=== PATIENT | female | born 1960 | race Caucasian/White ===

== ENCOUNTER 2022-08-03 06:02 | Day surgery (SDC) | payer OTHER ==
[2022-08-02 08:55] VITALS: BMI 25.5
[2022-08-03] MEDS ORDERED: LIDOCAINE HCL/PF 2% SDV 5ML VIAL ONE (07:07)
[2022-08-03] MEDS ORDERED: ePHEDrine SULFATE 50 MG/1 ML AMPULE ONE (07:07)
[2022-08-03] MEDS ORDERED: ONDANSETRON 4 MG/2 ML VIAL ONE (07:07)
[2022-08-03] MEDS ORDERED: DEXAMETHASONE SOD PHOSPHATE 4 MG/1 ML VIAL ONE (07:07)
[2022-08-03] MEDS ORDERED: MIDAZOLAM HCL 2 MG/2 ML SINGLE DOSE VIAL ONE ×2 (07:08→07:32)
[2022-08-03] MEDS ORDERED: ceFAZolin SODIUM 1 GM VIAL ONE ×2 (07:08→12:04)
[2022-08-03] MEDS ORDERED: PROPOFOL 40 ML ONE (07:08)
[2022-08-03] MEDS ORDERED: SUCCINYLCHOLINE CHLORIDE 200 MG/10 ML SYRINGE ONE (07:08)
[2022-08-03] MEDS ORDERED: ROCURONIUM BROMIDE 50 MG/5 ML SYRINGE ONE (07:08)
[2022-08-03] MEDS ORDERED: VANCOMYCIN 1,000 MG VIAL (RESTRICTED TO ID ONLY) ONE ×2 (07:17→07:41)
[2022-08-03] MEDS ORDERED: DEXAMETHASONE SOD PHOSPHATE 10 MG/1 ML VIAL ONE (07:32)
[2022-08-03] MEDS ORDERED: ROPIVACAINE HCL 0.5% 30ML VIAL ONE (07:32)
[2022-08-03] MEDS ORDERED: TRANEXAMIC ACID 1000 MG/10 ML VIAL IVPUSH ONE (08:00)
[2022-08-03] MEDS ORDERED: CEFAZOLIN 2 GM in DEXTROSE 5%-WATER - 50 ML IVPB ONE (08:00)
[2022-08-03] MEDS ORDERED: LACTATED RINGERS SOLUTION 1,000 ML IV SCH ×2 (12:15→13:00)
[2022-08-03] MEDS ORDERED: MAG HYDROX/AL HYDROX/SIMETH 30 ML UNIT-DOSE CUP PO PRN (12:15)
[2022-08-03] MEDS ORDERED: MAGNESIUM HYDROX 2400MG/30ML ORAL SUSPENSION 30 ML CUP PO PRN (12:15)
[2022-08-03] MEDS ORDERED: ONDANSETRON 4 MG/2 ML VIAL IVPUSH PRN ×2 (12:15→12:56)
[2022-08-03] MEDS ORDERED: ACETAMINOPHEN INJECTION 100 ML IVPB ONE (12:56)
[2022-08-03] MEDS ORDERED: oxyCODONE HCL 5 MG TABLET PO PRN (12:56)
[2022-08-03] MEDS ORDERED: ACETAMINOPHEN 1000 MG/100 ML BAG IVPB ONE (12:56)
[2022-08-03] MEDS ORDERED: FENTANYL CITRATE/PF 50 MCG/ML VIAL ONE ×2 (13:04→13:29)
[2022-08-03] MEDS: oxyCODONE HCL 5 MG TABLET PO PRN ×2 (14:34→17:55)
[2022-08-03] MEDS: CEFAZOLIN SODIUM 2 GM in DEXTROSE 5%-WATER 100 ML IVPB SCH (17:55)
[2022-08-03 18:39] VITALS: RESP 18
[2022-08-03] MEDS ORDERED: VANCOMYCIN 1 GRAM (PRE-DOCKED) 1 GM/250 ML BAG IVPB ONE (20:00)
[2022-08-03] MEDS ORDERED: PATIENT'S OWN MEDICATION (NON-FORMULARY) (Cyclosporine [Restasis] 1 EACH Droperette) OU SCH (22:00)
[2022-08-03] MEDS ORDERED: [UNRECOGNIZED DRUG - OTHER] PO SCH (22:00)
[2022-08-03] MEDS ORDERED: ATORVASTATIN CA 10 MG TABLET (FP) PO SCH (22:00)
[2022-08-03] MEDS: GABAPENTIN 100 MG CAPSULE PO SCH (22:11)
[2022-08-03] MEDS: ACETAMINOPHEN 500 MG TABLET (FP) PO SCH (22:11)
[2022-08-03] MEDS: SENNOSIDES/DOCUSATE COMBO (SENNA PLUS) TABLET (UD) PO SCH (22:13)
[2022-08-04] MEDS: CEFAZOLIN SODIUM 2 GM in DEXTROSE 5%-WATER 100 ML IVPB SCH (03:34)
[2022-08-04] MEDS: ACETAMINOPHEN 500 MG TABLET (FP) PO SCH ×3 (05:35→16:05)
[2022-08-04] MEDS ORDERED: ASPIRIN 325 MG TABLET PO SCH (08:00)
[2022-08-04 08:32] LABS: HEMATOCRIT 28.6 % (32.4-45.2); MCH 32.7 pg (25.7-33.7); MCHC 34.8 g/dl (32.0-36.0); MEAN CELL VOLUME 93.9 fl (80-96); RBC 3.05 10^6/uL (3.60-5.2); RDW 14.1 % (11.6-15.6); WHITE BLOOD COUNT 8.3 10^3/uL (4.0-10.8)
[2022-08-04 08:35] LABS: CALCIUM 8.4 mg/dl (8.5-10); CREATININE 0.5 mg/dl (0.55-1.3)
[2022-08-04] MEDS ORDERED: PATIENT'S OWN MEDICATION (NON-FORMULARY) (Omeprazole 20 MG Capsule.Dr) PO SCH (10:00)
[2022-08-04] MEDS ORDERED: ASCORBIC ACID 500 MG TABLET (FP) PO SCH (10:00)
[2022-08-04] MEDS ORDERED: PATIENT'S OWN MEDICATION (NON-FORMULARY) (Multivitamin [Multiple Vitamins] 1 EACH Tablet) PO SCH (10:00)
[2022-08-04] MEDS: GABAPENTIN 100 MG CAPSULE PO SCH (10:00)
[2022-08-04] MEDS ORDERED: valACYclovir HCL 500 MG TABLET (FP) PO SCH (10:00)
[2022-08-04] MEDS ORDERED: PANTOPRAZOLE 40 MG TABLET PO SCH (10:00)
[2022-08-04] MEDS ORDERED: LORATADINE 10 MG TABLET PO SCH (10:00)
[2022-08-04] MEDS ORDERED: PATIENT'S OWN MEDICATION (NON-FORMULARY) (Iron [Iron] 18 MG Tablet) PO SCH (10:00)
[2022-08-04] MEDS ORDERED: CHOLECALCIFEROL (VIT D3) 1,000 UNIT (25 MCG) TABLET PO SCH (10:00)
[2022-08-04] MEDS ORDERED: MULTIVITAMINS (DAILY MVI) TABLET (FP) PO SCH (10:00)
[2022-08-04] MEDS: SENNOSIDES/DOCUSATE COMBO (SENNA PLUS) TABLET (UD) PO SCH (10:01)
[2022-08-04] MEDS ORDERED: DOXYCYCLINE HYCLATE 100 MG CAPSULE PO SCH (10:22)
[2022-08-04 14:24] VITALS: BP 97/58; PULSE 84; TEMP 98.9
== END 2022-08-04 17:00 | disposition home or self-care (01) ==
LOC: FASUSAT 06:02 → MERGE 07:30 → FM/S 14:12 → FASUSAT 08-04 17:00
PROVIDERS: ATTEND Orthopaedic Surgery
PROC: 0RRJ0J7 Replacement of Right Shoulder Joint with Synthetic Substitute, Glenoid Surface, Open Approach (ICD-10-PCS; 2022-08-03)
PROC: 0RPJ0J7 Removal of Synthetic Substitute from Right Shoulder Joint, Glenoid Surface, Open Approach (ICD-10-PCS; principal; 2022-08-03 08:48)
DX: T84.098A Other mechanical complication of other internal joint prosthesis, initial encounter (principal); Y79.3 Surgical instruments, materials and orthopedic devices (including sutures) associated with adverse incidents; Y92.9 Unspecified place or not applicable; Z96.611 Presence of right artificial shoulder joint
CPT/HCPCS: 23472; C1713; 36415; 73030-TC-RT-FY; 80048; 85027; 87070; 87075; 87205; 88304-TC; 88305-TC; 88311-TC; 88331-TC; 94760; 97116-GP; 97162-GP; C1776; J1100

== ENCOUNTER 2022-08-05 15:05 | Emergency (ER) | payer OTHER ==
[2022-08-05 15:20] VITALS: RESP 18; BMI 25.4
[2022-08-05] MEDS ORDERED: BEBTELOVIMAB (EUA) 175 MG/2 ML VIAL IVPUSH ONE (15:49)
[2022-08-05 17:58] VITALS: BP 103/60; PULSE 61; TEMP 98.7
== END 2022-08-05 18:33 | disposition home or self-care (01) ==
LOC: JER 15:05
DX: U07.1 COVID-19 (principal)
CPT/HCPCS: 96374; 99284-25; M0222; Q0222